=== PATIENT | female | born 1965 | race Caucasian/White ===

== ENCOUNTER → 2023-11-08 11:04 | Outpatient (REF) | payer BC, SELFPAY | LOC: MRI 3T 11:04 | PROVIDERS: ATTENDING PHYSICIAN Physician Assistant Medical; FAMILY PHYSICIAN Nurse Practitioner Family | DX: R90.89 Other abnormal findings on diagnostic imaging of central nervous system (principal) | CPT/HCPCS: 70544; 70553; A9575 ==